=== PATIENT | male | born 2000 | race Caucasian/White ===

== ENCOUNTER 2018-06-24 18:21 | Emergency (ER) | payer BC, SELFPAY ==
[2018-06-24 18:22] VITALS: BP 128/74; PULSE 82; RESP 16; TEMP 36.6; O2SAT 95; BMI 21.4
--- NOTE | 2018-06-24 18:44 | RAD_ITS ---
STUDY: X-RAY CHEST REASON FOR EXAM: Male, 17 years old. Right-sided chest pain TECHNIQUE: PA and lateral views of the chest. COMPARISON: None. FINDINGS: The lungs are clear and expanded. There is no demonstrated pleural abnormality. Normal size heart. Normal mediastinum and pradeep. Normal visualized pulmonary arteries. Normal visualized aortic arch and descending thoracic aorta. Normal visualized thoracic spine. Normal visualized ribs, clavicles, and shoulders. There is no demonstrated abnormality of the visualized soft tissue structures of the upper abdomen. RAD/Chest PA and Lateral IMPRESSION: Normal x-ray examination of the chest. Electronically Signed: David Tran DO at 19:54 EDT Tel , Service support ,
--- NOTE | 2018-06-24 18:44 | EKG12_ITS ---
Test Reason : CP Blood Pressure : / mmHG Vent. Rate : 062 BPM Atrial Rate : 062 BPM P-R Int : 136 ms QRS Dur : 090 ms QT Int : 360 ms P-R-T Axes : -42 058 055 degrees QTc Int : 365 ms Unusual P axis, possible ectopic atrial rhythm with undetermined rhythm irregularity Abnormal ECG Confirmed by KOMAL BOLAND, LILLY ([id number]), loan expeditor RYAN URIBE ([id number]) on 06/28/2018 1:55:12 PM Referred By: PC Confirmed By:LILLY SAUCEDA MD
--- NOTE | 2018-06-24 20:21 | ED.DCSUM_ITS ---
- ER Visit Summary Date of Service: 06/24/18 Chief Complaint: Chest pain History of Present Illness: The patient is a 17 M with right-sided chest pain, worse with taking a deep breath, started earlier today. He has no fever chills cough or congestion. No shortness of breath. He has no recent travel history and no PE risk factors. No back pain or tearing sensation Physical Examination: Not appear in acute distress. Moist mucous membranes, no obvious facial deformity No C-spine tenderness supple neck. Regular rate and rhythm without any obvious murmurs Clear lungs bilaterally speaking in full sentences without any obvious respiratory distress. Some right-sided chest wall pain Abdomen soft and nontender no guarding or rebound Moves all extremities without any difficulty or pain. Skin does not show any obvious rashes or lesions, no trauma. Alert oriented ?3 with no gross focal deficit Emergency Department Course and Treatment: EKG is unremarkable. Chest x-ray is normal. This is likely pleurisy. PERC is negative. No risk factors for PE or dissection. He will be discharged with Naprosyn. Discharge stable condition Impression: [Chest pain] This note was generated with [employer] dictation software. It may contain incorrect words, spelling, and punctuation that were not noted in review of the chart prior to signing ED Disposition - Plan for ED Patient: Disposition: Home or Assisted Living Instructions: ED Chest Pain Atypical Unkn Cause Prescriptions: Naproxen [Naprosyn] 500 mg PO BID PRN PRN #20 tab PRN Reason: Pain Referrals: Care Physician,No Primary [Primary Care Provider] - 3-5 Days
[2018-06-24 20:23] VITALS: BP 112/66; PULSE 58; RESP 16; O2SAT 97
[2018-06-24] MEDS: Naproxen 500 MG Tablet PO (20:23)
== END 2018-06-24 20:27 | disposition home or self-care (01) ==
PROVIDERS: Emergency Provider Emergency Medicine
DX: R07.89 Other chest pain (principal); Z72.0 Tobacco use
CPT/HCPCS: 71046; 93005; 99283

== ENCOUNTER 2019-09-06 15:28 | Emergency (ER) | payer SELFPAY ==
[2019-09-06 15:29] VITALS: BP 138/82; PULSE 51; RESP 17; TEMP 36.7; O2SAT 98; BMI 23.0
--- NOTE | 2019-09-06 15:51 | US_ITS ---
STUDY: SCROTUM ULTRASOUND REASON FOR EXAM: Male, 18 years old. BILATERAL TESTICULAR PAIN TECHNIQUE: Ultrasound evaluation of the scrotum was performed with color Doppler and static whitmore-scale imaging. COMPARISON: None. FINDINGS: RIGHT TESTICLE INTRATESTICULAR: There is a normal size of the right testicle. The right testicle measures 4.1 x 3.1 x 2.6 cm. There is a homogenous echotexture. There is normal arterial and normal venous vascularity. There is no demonstrated right testicular mass or cyst. EXTRATESTICULAR: The epididymis is normal in size. The epididymis head measures 1.1 x 1.4 x 1 cm. There is normal vascularity of the epididymis. There is no demonstrated epididymal cystic structure. There is no demonstrated hydrocele. There is no demonstrated varicocele. There is no demonstrated extratesticular mass or cyst. LEFT TESTICLE INTRATESTICULAR: There is a normal size of the left testicle. The left testicle measures 4.6 x 3.1 x 2.4 cm. There is a homogenous echotexture. There is normal arterial and normal venous vascularity. There is no demonstrated left testicular mass or cyst. Microcalcifications. EXTRATESTICULAR: The epididymis is normal in size. The epididymis head measures 1 x 1.5 x 1 cm. There is normal vascularity of the epididymis. There is no demonstrated epididymal cystic structure. There is no demonstrated hydrocele. There is no demonstrated varicocele. There is no demonstrated extratesticular mass or cyst. IMPRESSION: Microcalcifications on the left otherwise Normal bilateral testicles. Electronically Signed: Juanjose Reagan MD at 17:55 EDT , Service support , US/Testicular with Arterial Flow
--- NOTE | 2019-09-06 17:10 | CT_ITS ---
STUDY: CT ABDOMEN AND PELVIS WITHOUT CONTRAST REASON FOR EXAM: Male, 18 years old. ABD/BILAT TESTICULAR PAIN X ONE YR/GETTING WORSE. Bilateral flank pain x years. Pleasse comment on lumbar spine per ER physician RADIATION DOSAGE (If Supplied By Facility): CTDIvol = ( 6.10 ) mGy, DLP = ( 330.25 ) mGycm TECHNIQUE: Transaxial images were obtained from the dome of the diaphragm to the symphysis pubis without oral contrast, and without intravenous contrast. Sagittal and coronal images were reconstructed. Individualized dose optimization techniques were used for this CT. COMPARISON: None. FINDINGS: The visualized lung bases are unremarkable. The visualized portions of the heart are within normal limits. Normal liver. Normal gallbladder and extrahepatic biliary system. Normal spleen. Normal pancreas. Normal bilateral adrenal glands. Bilateral multiple punctate nonobstructing nephroliths. Normal visualized stomach. Normal small intestine. Normal colon. The appendix is visualized and appears normal. Normal abdominal aorta. Normal inferior vena cava. Normal retroperitoneum. Normal urinary bladder. Normal abdominal wall. Normal osseous structures. CT/Abdomen/Pelvis without Cont IMPRESSION: Bilateral punctate nonobstructing nephroliths. Normal lumbar spine. Electronically Signed: Juanjose Reagan MD at 17:50 EDT , Service support ,
--- NOTE | 2019-09-06 17:11 | ED.DCSUM_ITS ---
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, he indicates he has daily right or left flank pain, today the left flank pain intensified and he came in for evaluation his review of systems are entirely negative he takes his hand and he draws it from the iliac crests right and left across the flanks and say the pain shoots into his groin Past Medical History - Allergies and Home Meds Allergies/Adverse Reactions: Allergies No Known Allergies Allergy (Verified 09/06/19 15:28) Primary Care Physician: Care Physician,No Primary [Primary Care Provider] - Past Medical History: - - This bilateral flank pain for years otherwise he denies past history medications or trauma Smoking Status: Current some day smoker Review of Systems General: Reports: - - Adderall intermittent flank pain for years. Denies: Chills, Fever, Sweats Eyes: Denies: Visual changes - bilaterally, Diplopia ENT: Denies: Rhinorrhea, Sore throat Cardiovascular: Denies: Chest pain, Palpitations Respiratory: Denies: Dyspnea, Cough, Dyspnea on exertion Gastrointestinal: Denies: Abdominal pain, Nausea, Vomiting, Diarrhea, Melena, Hematochezia Genitourinary: Denies: Dysuria, Hematuria, Frequency Musculoskeletal: Denies: Back pain, Extremity Pain Skin: Denies: Rash, Wounds Neurological: Denies: Headache, Weakness, Numbness Physical Exam Vital Signs/Narrative: Vital Signs Temp Pulse Resp BP Pulse Ox 09/06/19 15:29 98.1 F 51 L 17 138/82 H 98 General: Well nourished, Well developed, No Acute Distress Head: Normocephalic, Atraumatic Eyes: Perrl, EOMI ENT: Moist mucous membranes, No rhinorrhea Neck: Supple, Nontender Cardiovascular: Regular rate, Regular rhythm, No murmurs Respiratory: No distress, CTA bilaterally, Chest nontender Abdomen: Soft, Nontender, Nondistended, Normal bowel sounds Back: Nontender, Normal Inspection Extremities: Nontender, No edema Skin: Normal color, No rash Neurological: Alert, Oriented x3, Cranial nerves II-XII grossly intact, Normal Strength, Normal Sensation Psychological: Normal affect, Normal Mood Diagnostic/Tx/Re-eval - Medical Decision Making His physical exam is unremarkable the midline lumbar T-spine C-spine unre markable the flanks are unremarkable the skin is unremarkable the abdomen soft nontender the pelvis is stable the exam is unremarkable, the skin is unremarkable he is able to stand and walk without difficulty he can toe raise heel raise he can actually jump in place without any pain he is complaining of this flank pain that goes across his left flank into the left iliac crest into his groin he has no history any type of musculoskeletal traumatic ailment in fact he has no past history Given all the above he is had this for [address] ultrasound scrotum Patient's ED screening evaluation was generally unremarkable labs are unremarkable except for microscopic hematuria, CT abdomen pelvis including lumbar spine negative ultrasound scrotum negative I explained all the above to the patient that the exact etiology of all the above was unclear could not explain the microscopic hematuria, he has had symptoms for 2 years he understands that he is to follow-up with his outpatient providers for further management he will take Tylenol or Motrin [id number] for the pain return for change in symptoms he understands all the above Was given a referral to outpatient providers and urology Home stable Final impression intermittent flank pain, microscopic hematuria ED Disposition - Plan for ED Patient: Diagnosis: Flank pain, Hematuria Instructions: ED Flank Pain Uncertain Cause Referrals: Care Physician,No Primary [Primary Care Provider] - Ernesto Yang MD [STAFF PHYSICIAN] - Dino Rojas MD [STAFF PHYSICIAN] -
[2019-09-06 17:28] VITALS: BP 136/79; PULSE 91; RESP 16; O2SAT 98
[2019-09-06] MEDS: Ondansetron 4 MG/2 ML Vial IV (18:03)
[2019-09-06] MEDS: Ketorolac 30 MG/ML Syringe IV (18:03)
[2019-09-06] MEDS: 0.9% Normal Saline 1,000 ML 250 ML IV (18:03)
[2019-09-06 18:17] LABS: Bacteria 0 SEEN /hpf (None Seen); Mucous, Urine 0 SEEN /hpf (<or=2+); Squamous Epithelial Cells - UA 0 SEEN /hpf (0-5)
[2019-09-06 18:19] LABS: Absolute Lymphocyte Count 0.95 X10^3/uL (0.83-4.51); Basophil# 0.03 X10^3/uL; Basophil% 0.3 % (0-1); Eosinophil# 0.03 X10^3/uL; Eosinophils% 0.3 % (0-5); Hematocrit 47.6 % (40-54); Hemoglobin 16.3 g/dL (13.0-16.5); Lymphocyte # 0.95 X10^3/ul (4.0); Mean Corp Hgb Conc 34.2 g/dL (32-36); Mean Corpuscular Hgb 30.1 pg (27.0-32.0); Mean Platelet Vol. 9.7 fl (6.2-12.0); Monocyte# 0.47 X10^3/uL; Monocyte% 4.5 % (0-10); NRBC Flagged by Analyzer 0 % (0-5); Neutrophil # 8.99 X10^3/uL (2.7-7.7); Neutrophil % 85.6 % (47-70); Platelet Count 223 K/mm3 (150-450); RBC Distribution Width CV 11.6 % (11.6-14.6); Red Blood Count 5.41 M/mm3 (4.6-6.2); White Blood Count 10.5 K/mm3 (4.4-11.0)
[2019-09-06 18:24] LABS: Color, Urine Amber (Yellow); Glucose, Dipstick Normal (Normal); Leukocyte Esterase-Dipstick 25 /ul (Negative); Nitrite-Dipstick Negative (Negative); Occult Blood-Urine 250 /ul (Negative); Protein-Dipstick 30 mg/dl (Negative); Specific Gravity, Urine 1.015 (1.002-1.030); Urine Bilirubin Dipstick Negative (Negative); Urine Clarity Cloudy (Clear); Urine Urobilinogen 1 mg/dl (Normal)
[2019-09-06 18:32] LABS: Anion Gap 3 (5-15); BUN 8 mg/dL (7-18); BUN/Creat Ratio 6.9 RATIO (10-20); Calcium,Total 9.1 mg/dL (8.5-10.1); Chloride 107 mmol/L (98-107); Creatinine, Serum 1.16 mg/dL (0.70-1.30); EST Glomerular Filtration Rate 85 mL/min (>60); Est Glom Filt Rate - Afr Amer 102 mL/min (>60); Estimated Creatinine Clearance 107.53 ml/min; Glucose 98 mg/dL (74-106); Potassium 3.4 mmol/L (3.5-5.1); Sodium Level 140 mmol/L (136-145)
[2019-09-06 18:35] LABS: Ketone-Dipstick 150 mg/dl (Negative)
[2019-09-06 18:36] LABS: Red Blood Cells-Urine > 100 SEEN /hpf (0-5)
[2019-09-06 18:38] LABS: White Blood Cells 0-5 SEEN /hpf (0-5)
[2019-09-06 20:14] VITALS: RESP 16
== END 2019-09-06 20:19 | disposition home or self-care (01) ==
LOC: ED 17:46
PROVIDERS: Emergency Medicine; Emergency Provider Emergency Medicine
DX: N50.811 Right testicular pain (principal); N50.812 Left testicular pain; R31.29 Other microscopic hematuria; F17.200 Nicotine dependence, unspecified, uncomplicated
CPT/HCPCS: 74176; 76870; 80048; 81001; 85025; 93976; 96361; 96374; 96375; 99283; J2405

== ENCOUNTER 2019-09-07 10:34 | Emergency (ER) | payer SELFPAY ==
[2019-09-06 15:29] VITALS: BMI 23.0
[2019-09-07 10:35] VITALS: BP 148/96; PULSE 49; RESP 18; TEMP 36.3; O2SAT 98; BMI 21.9
--- NOTE | 2019-09-07 10:54 | CT_ITS ---
STUDY: CT ABDOMEN AND PELVIS WITHOUT CONTRAST REASON FOR EXAM: Male, 19 years old. LEFT FLANK PAIN, BLOOD IN URINE, VOMITING RADIATION DOSAGE (If Supplied By Facility): CTDIvol = ( 11.88 ) mGy, DLP = ( 363.91 ) mGycm TECHNIQUE: Transaxial images were obtained from the dome of the diaphragm to the symphysis pubis without oral contrast, and without intravenous contrast. Sagittal and coronal images were reconstructed. Individualized dose optimization techniques were used for this CT. COMPARISON: None. FINDINGS: The visualized lung bases are unremarkable. The visualized portions of the heart are within normal limits. Normal liver. Normal gallbladder and extrahepatic biliary system. Normal spleen. Normal pancreas. Normal bilateral adrenal glands. Normal right kidney. 3 mm obstructing stone at the distal left ureter with mild ureteral dilatation hydronephrosis. Normal visualized stomach. Normal small intestine. Normal colon. The appendix is visualized and appears normal. Normal abdominal aorta. Normal inferior vena cava. Normal retroperitoneum. Normal urinary bladder. Normal abdominal wall. Normal osseous structures. CT/Abdomen/Pelvis W IV Cont ONLY IMPRESSION: 3 mm obstructing stone at the distal left ureter with mild ureteral dilatation and hydronephrosis. Electronically Signed: Tyrel Cintron MD at 11:54 EDT Tel , Service support ,
--- NOTE | 2019-09-07 10:56 | ED.DCSUM_ITS ---
History of Present Illness Chief Complaint: Flank Pain Informant: Patient Narrative: 19-year-old male with no significant past medical history presents with concern for left-sided flank pain. Patient was seen yesterday in our emergency department where he received a negative ultrasound of his scrotum as well as negative CT without contrast. States that his pain had resolved for a period of time but again vomiting this morning and noticed blood in his urine again. States that the pain is radiating into his left groin. He denies any fever but does admit to chills. Denies any dysuria. Denies any concern for STDs. Past Medical History - Allergies and Home Meds Allergies/Adverse Reactions: Allergies No Known Allergies Allergy (Verified 09/07/19 10:37) Primary Care Physician: Care Physician,No Primary [Primary Care Provider] - Prior records reviewed: Yes Past Medical History: None Surgical History: no surgical history Lives: Alone Smoking Status: Current every day smoker Alcohol: None Drugs: None Review of Systems General: Denies: Chills, Fever, Sweats Eyes: Denies: Visual changes - bilaterally, Diplopia ENT: Denies: Rhinorrhea, Sore throat Cardiovascular: Denies: Chest pain, Palpitations Respiratory: Denies: Dyspnea, Cough, Dyspnea on exertion Gastrointestinal: Denies: Abdominal pain, Nausea, Vomiting, Diarrhea, Melena, Hematochezia Genitourinary: Reports: Hematuria, - - left flank pain. Denies: Dysuria, Frequency Musculoskeletal: Denies: Back pain, Extremity Pain Skin: Denies: Rash, Wounds Neurological: Denies: Headache, Weakness, Numbness Physical Exam Vital Signs/Narrative: Vital Signs Temp Pulse Resp BP Pulse Ox 09/07/19 10:35 97.3 F L 49 L 18 148/96 H 98 General: Well nourished, Well developed, No Acute Distress Head: Normocephalic, Atraumatic Eyes: Perrl, EOMI ENT: Moist mucous membranes, No rhinorrhea Neck: Supple, Nontender Cardiovascular: Regular rate, Regular rhythm, No murmurs Respiratory: No distress, CTA bilaterally, Chest nontender Abdomen: Soft, Nontender, Nondistended, Normal bowel sounds Back: Normal Inspection, CVA tenderness Extremities: Nontender, No edema Skin: Normal color, No rash Neurological: Alert, Oriented x3, Cranial nerves II-XII grossly intact, Normal Strength, Normal Sensation Psychological: Normal affect, Normal Mood Diagnostic/Tx/Re-eval Clinical Impression(s) from Imaging Studies Abdomen/Pelvis CT 09/07/19 10:54 IMPRESSION: 3 mm obstructing stone at the distal left ureter with mild ureteral dilatation and hydronephrosis. Electronically Signed: Tyrel Cintron MD at 11:54 EDT Tel , Service support , Laboratory Data 09/07/19 09/07/19 09/07/19 11:02 11:02 13:01 WBC 13.0 H RBC 5.45 Hgb 16.6 H Hct 48.1 MCV 88.3 MCH 30.5 MCHC 34.5 RDW Std Deviation 37.0 RDW Coeff of Ingris 11.6 Plt Count 251 MPV 9.6 Immature Gran % (Auto) 0.400 Neut % (Auto) 74.6 H Lymph % (Auto) 17.3 L [place] % (Auto) 7.1 Eos % (Auto) 0.3 Baso % (Auto) 0.3 Absolute Neuts (auto) 9.7 H Absolute Lymphs (auto) 2.25 Nucleated RBC % 0 Sodium 142 Potassium 4.1 Chloride 109 H Carbon Dioxide 27.0 Anion Gap 6 BUN 8 Creatinine 1.48 H Estim Creat Clear Calc 79.74 Est GFR (MDRD) Af Amer 77 Est GFR (MDRD) Non-Af 64 BUN/Creatinine Ratio 5.4 L Glucose 111 H Calcium 9.2 Total Bilirubin 1.10 H AST 25 ALT 29 Alkaline Phosphatase 61 Total Protein 7.5 Albumin 4.7 Globulin 2.8 Albumin/Globulin Ratio 1.7 Urine Color Yellow Urine Clarity Sl. Cloudy Urine pH 6.5 Ur Specific Cummings 1.005 Urine Protein 15 H Urine Glucose (UA) Normal Urine Ketones 50 H Urine Occult Blood 50 H Urine Nitrite Negative Urine Bilirubin Negative Urine Urobilinogen 1 H Ur Leukocyte Esterase Negative Urine RBC 5-10 SEEN Urine WBC 0-5 SEEN Ur Squamous Epith Cells 0-5 SEEN Urine Bacteria RARE Urine Mucus 0 SEEN - Medical Decision Making Patient having mild to moderate pain in the left flank. CT with IV contrast was repeated today. Evidence of 3 mm obstructing distal ureteral stone. Urine shows no evidence of infection. Likely reactive leukocytosis of 13,000. Patient does have a mild acute renal insufficiency but also has ketonuria likely secondary to volume depletion. Patient was given morphine and Zofran as well as 1 L of normal saline. Patient was then given Toradol and had good relief of his pain. After extensive discussion with the patient he does wish to be discharged home. He is requesting Toradol for home. I told him I would write him a 3-day prescription but that we need to be careful given his acute renal insufficiency. I advised him on taking Tylenol in association with this medication. Patient will be given Zofran for home and follow-up with urology given yesterday. Patient asked to return for new or worsening symptoms. Patient agreeable and discharged home in stable condition. ED Disposition - Plan for ED Patient: Disposition: Home or Assisted Living Diagnosis: Ureterolithiasis, Vomiting Instructions: Understanding Kidney Stones Prescriptions: Ketorolac [Toradol] 10 mg PO Q6H PRN #12 tab PRN Reason: Pain Score 1-10/10 Transmission Status: Pending to [id number] Ondansetron [Zofran Odt] 4 mg PO Q8H PRN PRN #12 tab PRN Reason: Vomiting Transmission Status: Pending to [id number] Referrals: Care Physician,No Primary [Primary Care Provider] -
[2019-09-07 11:09] LABS: Absolute Lymphocyte Count 2.25 X10^3/uL (0.83-4.51); Absolute Neutrophil Count 9.7 X10^3/uL (2.0-7.7); Basophil# 0.04 X10^3/uL; Basophil% 0.3 % (0-1); Eosinophil# 0.04 X10^3/uL; Eosinophils% 0.3 % (0-5); Hematocrit 48.1 % (40-54); Hemoglobin 16.6 g/dL (13.0-16.5); Lymphocyte # 2.25 X10^3/ul (4.0); Lymphocyte % 17.3 % (19-41); Mean Corp Hgb Conc 34.5 g/dL (32-36); Mean Corpuscular Hgb 30.5 pg (27.0-32.0); Mean Corpuscular Volume 88.3 fL (80-94); Mean Platelet Vol. 9.6 fl (6.2-12.0); Monocyte# 0.92 X10^3/uL; Monocyte% 7.1 % (0-10); NRBC Flagged by Analyzer 0 % (0-5); Neutrophil # 9.71 X10^3/uL (2.7-7.7); Neutrophil % 74.6 % (47-70); Platelet Count 251 K/mm3 (150-450); RBC Distribution Width CV 11.6 % (11.6-14.6); Red Blood Count 5.45 M/mm3 (4.6-6.2)
[2019-09-07] MEDS: Morphine 4 MG/ML Syringe IV (11:24)
[2019-09-07] MEDS: 0.9% Normal Saline 1,000 ML 1000 ML IV (11:24)
[2019-09-07] MEDS: Ondansetron 4 MG/2 ML Vial IV (11:24)
[2019-09-07 11:25] LABS: ALB/GLOB Ratio 1.7 RATIO (0.9-2.4); AST(SGOT) 25 U/L (15-37); Alanine Aminotransfer ALT/SGPT 29 U/L (16-61); Albumin, Serum 4.7 g/dL (3.2-5.0); Alkaline Phosphatase 61 U/L (45-117); Anion Gap 6 (5-15); BUN 8 mg/dL (7-18); BUN/Creat Ratio 5.4 RATIO (10-20); Calcium,Total 9.2 mg/dL (8.5-10.1); Chloride 109 mmol/L (98-107); Creatinine, Serum 1.48 mg/dL (0.70-1.30); EST Glomerular Filtration Rate 64 mL/min (>60); Est Glom Filt Rate - Afr Amer 77 mL/min (>60); Estimated Creatinine Clearance 79.74 ml/min; Globulin 2.8 g/dL (2.2-4.2); Glucose 111 mg/dL (74-106); Potassium 4.1 mmol/L (3.5-5.1); Protein, Total 7.5 g/dL (6.4-8.2); Sodium Level 142 mmol/L (136-145)
[2019-09-07] MEDS: Ketorolac 15 MG/ML Vial IV (11:52)
[2019-09-07 13:10] LABS: Mucous, Urine 0 SEEN /hpf (<or=2+)
[2019-09-07 13:17] LABS: Color, Urine Yellow (Yellow); Glucose, Dipstick Normal (Normal); Ketone-Dipstick 50 mg/dl (Negative); Leukocyte Esterase-Dipstick Negative /ul (Negative); Nitrite-Dipstick Negative (Negative); Occult Blood-Urine 50 /ul (Negative); Protein-Dipstick 15 mg/dl (Negative); Specific Gravity, Urine 1.005 (1.002-1.030); Urine Bilirubin Dipstick Negative (Negative); Urine Clarity Sl. Cloudy (Clear); Urine Urobilinogen 1 mg/dl (Normal); Urine pH 6.5 (5.0 - 8.0)
[2019-09-07 13:27] LABS: Red Blood Cells-Urine 5-10 SEEN /hpf (0-5); Squamous Epithelial Cells - UA 0-5 SEEN /hpf (0-5); White Blood Cells 0-5 SEEN /hpf (0-5)
[2019-09-07 13:28] LABS: Bacteria RARE /hpf (None Seen)
[2019-09-07 13:43] VITALS: PULSE 92; RESP 12; O2SAT 98
[2019-09-07 13:52] VITALS: BP 125/87; PULSE 91; RESP 15; O2SAT 99
== END 2019-09-07 13:52 | disposition home or self-care (01) ==
PROVIDERS: Emergency Provider Emergency Medicine
DX: N13.2 Hydronephrosis with renal and ureteral calculous obstruction (principal); R11.10 Vomiting, unspecified; F17.200 Nicotine dependence, unspecified, uncomplicated
CPT/HCPCS: 74177; 80053; 81001; 85025; 96361; 96374; 96375; 99283; J7030; Q9967; A4216; J2405

== ENCOUNTER 2022-11-03 03:23 | Emergency (ER) | payer OTHER, SELFPAY ==
[2022-11-03 03:24] VITALS: BP 120/60; PULSE 56; RESP 18; TEMP 36.7; O2SAT 98; BMI 35.4
[2022-11-03] MEDS: Lidocaine 1% (20 ml mdv) 20 ML Vial INFILT (04:06)
--- NOTE | 2022-11-03 04:18 | EDS_ITS ---
HPI History of Present Illness Chief Complaint: Laceration Informant: patient Onset/Context/Timing Onset: Today Narrative Narrative: Patient presents with a laceration to the volar right forearm. He was at work and cut a strap off of a bundle. The strap hit the volar aspect of his right forearm causing a laceration. Last tetanus shot was 3 years ago. He is right- hand dominant. PFSH PFSH Medical History no medical history no medical history Home Medications NK 11/03/22 [History Last Taken Unknown] Allergy/AdvReac Type Severity Reaction Status Date / Time No Known Allergies Allergy Verified 11/03/22 03:30 Social History Smoking Status: Current some day smoker tobacco type: cigarettes ROS ROS ED Constitutional Constitutional ED: Denies chills or fever(s) ENT ENT ED: Denies sore throat Cardiovascular Cardiovascular: Denies chest pain Respiratory/Chest Respiratory/Chest: Denies cough or dyspnea Gastrointestinal Gastrointestinal: Denies abdominal pain, nausea or vomiting Musculoskeletal Musculoskeletal: Reports extremity pain; Denies back pain Integumentary Reports other Details: Laceration ; Denies Abrasions or rash Neurologic Neurologic: Denies headache(s), paresthesias or weakness Psychiatric Psychiatric: Denies anxiety or depression Allergic/Immunologic Allergic/Immunologic ED: Denies lip swelling or urticaria EXAM Physical Exam Const Vital Signs: 11/03/22 03:24 11/03/22 04:22 Temperature 98.0 F Temperature Source Oral Pulse Rate 56 L Respiratory Rate 18 16 Blood Pressure 120/60 Blood Pressure Mean 80 Pulse Ox 98 Oxygen Delivery Method Room Air Positive well nourished and well developed General Appearance ED: well developed HEENT Reports normocephalic and head/scalp atraumatic Eyes PERRL and EOMs intact bilaterally Neck supple Chest Wall inspection of chest normal and palpation of chest normal Resp normal respiratory effort and clear to auscultation bilaterally Cardio regular rate and regular rhythm GI Palpation: soft Extremity Extremity Narrative: 2 cm laceration to the distal aspect of the volar right forearm. No active bleeding. Full range of motion of the right upper extremity without deficit. Neuro oriented x3 and no sensory deficits noted Sensorium / Orientation: alert Motor Exam: strength 5/5 throughout Psych mental status grossly normal MDM MDM MDM Narrative Medical decision making narrative: Patient consented for sutures. 3 cc of 1% lidocaine is infused locally around the laceration. Wound is cleansed and irrigated. 3 simple interrupted sutures of 5-0 nylon are placed with good approximation. Antibiotic ointment placed and dressing applied. Wound care discussed. Patient will follow-up with corporate care in 5 to 7 days for suture removal. Discharge Plan Triage Chief Complaint: Laceration ED Provider: Viki Rees Dx/Rx/DC Orders Clinical Impression: Laceration of forearm Instructions: ED Laceration Extremity Prescriptions: No Action NK Stand Alone Forms: Work Status Form Primary Care Provider: Care Physician,No Primary Referrals: Corporate,Care [Group of Physicians] - 7 Days for suture removal Care Physician,No Primary [Primary Care Provider] - Disposition Disposition: Home, Self Care
[2022-11-03 04:22] VITALS: RESP 16
== END 2022-11-03 04:57 | disposition home or self-care (01) ==
LOC: ED 04:25
PROVIDERS: Emergency Provider Emergency Medicine; Visit Provider Emergency Medicine
DX: S51.811A Laceration without foreign body of right forearm, initial encounter (principal); F17.210 Nicotine dependence, cigarettes, uncomplicated; Y99.0 Civilian activity done for income or pay; X58.XXXA Exposure to other specified factors, initial encounter
CPT/HCPCS: 12001; 99283